=== PATIENT | female | born 1985 | race American Indian/Alaskan Native ===

== ENCOUNTER 2017-04-08 10:13 | Emergency (ER) | payer SELFPAY ==
[2017-04-08] MEDS ORDERED: NACL 0.9% 1000 ML 1,000 ML IV ONE (11:10)
[2017-04-08] MEDS ORDERED: NORMODYNE IV ONE (11:11)
[2017-04-08 11:28] LABS: Bacteria,Urine 1+ /HPF (Negative); Bilirubin,Urine NEG (Negative); Blood,Urine MOD (Negative); Ketones,Urine NEG (Negative); Leukocyte Esterase,Urine SM (Negative); Mucus,Urine FEW /HPF; Nitrite,Urine NEG (Negative)
[2017-04-08] MEDS ORDERED: ZITHROMAX PO ONE (11:43)
[2017-04-08] MEDS ORDERED: ROCEPHIN IM ONE (11:44)
[2017-04-08] MEDS ORDERED: XYLOCAINE 1% MPF 5 mL INFILTRATI ONE (11:44)
--- NOTE | 2017-04-08 11:50 | Emergency Department Report ---
ED Female HPI - General Chief complaint: Urogenital-Female Stated complaint: STD/UTI Time Seen by Provider: 04/08/17 10:47 Source: patient Mode of arrival: Ambulatory Limitations: No Limitations - History of Present Illness Initial comments: This is a 31-year-old female nontoxic, well nourished in appearance, no acute signs of distress presents to the ED with c/o of vaginal discharge, dysuria, polyuria 1 week. Patient states discharges thick white creamy. Denies any chest pain, shortness of breath, fever, chills, nausea, vomiting, back pain, abdominal pain, pelvic pain. Patient states she is currently concerned about STD exposure due to unprotected sex prior to symptoms. Patient also states she has not taken her blood pressure medication 1 month. She states she takes Aldomet 500 mg BID. Patient denies any headache, blurry vision, dizziness. Denies any allergies. Past medical history includes hypertension. MD Complaint: vaginal discharge, dysuria, possible STD -: week(s) (1) Radiation: non-radiating Severity: mild Severity scale (0 -10): 8 Quality: burning Consistency: constant Improves with: none Worsens with: urination Are you Now?: No (patient has a Mirena) Last Menstrual Period: 03/21/15 EDC: 12/26/15 Associated Symptoms: vaginal discharge, dysuria. denies: vaginal bleeding, abdominal pain, nausea/vomiting, fever/chills, headaches, loss of appetite, hematuria, rash, seizure, shortness of breath, syncope, weakness - Related Data Sexually active: Yes Home Medications Medication Instructions Recorded Confirmed Last Taken Aldomet 500 mg PO BID 03/15/15 03/15/15 03/15/15 0900 Previous Rx's Medication Instructions Recorded Last Taken Type Docusate Sodium [Colace] 100 mg PO BID PRN #60 capsule 03/15/15 Unknown Rx Ferrous Gluconate [Fergon 325 MG 325 mg PO QDAY #30 tablet 03/15/15 Unknown Rx tab] Ibuprofen [Motrin] 800 mg PO Q8HR PRN #30 tablet 03/15/15 Unknown Rx Lidocain2.5%/Prilocai2.5% [Emla] 1 applic TP ONCE #1 tube 03/15/15 Unknown Rx oxyCODONE /ACETAMINOPHEN [Percocet 2 tab PO Q4HR PRN #30 tab 03/15/15 Unknown Rx 5/325] Sulfamethoxazole/Trimethoprim 1 each PO BID #14 tablet 04/08/17 Unknown Rx [Bactrim DS TAB] metroNIDAZOLE [Flagyl] 500 mg PO Q12HR #14 tab 04/08/17 Unknown Rx Allergies Allergy/AdvReac Type Severity Reaction Status Date / Time No Known Allergies Allergy Verified 08/01/14 13:49 ED Review of Systems ROS: Stated complaint: STD/UTI Other details as noted in HPI Constitutional: denies: chills, fever Eyes: denies: eye pain, eye discharge, vision change ENT: denies: ear pain, throat pain Respiratory: denies: cough, shortness of breath, wheezing Cardiovascular: denies: chest pain, palpitations Endocrine: no symptoms reported Gastrointestinal: denies: abdominal pain, nausea, diarrhea Genitourinary: urgency, dysuria, frequency, discharge Musculoskeletal: denies: back pain, joint swelling, arthralgia Skin: denies: rash, lesions Neurological: denies: headache, weakness, paresthesias Psychiatric: denies: anxiety, depression Hematological/Lymphatic: denies: easy bleeding, easy bruising ED Past Medical Hx - Past Medical History Hx Hypertension: Yes (this / methaldopa) Hx Congestive Heart Failure: No Hx Diabetes: No Hx Deep Vein Thrombosis: No Hx Renal Disease: No Hx Sickle Cell Disease: No Hx Seizures: No Hx Asthma: No Hx COPD: No Hx HIV: No - Surgical History Additional Surgical History: - Social History Smoking Status: Never Smoker Substance Use Type: Alcohol - Medications Home Medications: Home Medications Medication Instructions Recorded Confirmed Last Taken Type Aldomet 500 mg PO BID 03/15/15 03/15/15 03/15/15 History 09 Docusate Sodium [Colace] 100 mg PO BID PRN #60 capsule 03/15/15 Unknown Rx Ferrous Gluconate [Fergon 325 MG 325 mg PO QDAY #30 tablet 03/15/15 Unknown Rx tab] Ibuprofen [Motrin] 800 mg PO Q8HR PRN #30 tablet 03/15/15 Unknown Rx Lidocain2.5%/Prilocai2.5% [Emla] 1 applic TP ONCE #1 tube 03/15/15 Unknown Rx oxyCODONE /ACETAMINOPHEN [Percocet 2 tab PO Q4HR PRN #30 tab 03/15/15 Unknown Rx 5/325] Sulfamethoxazole/Trimethoprim 1 each PO BID #14 tablet 04/08/17 Unknown Rx [Bactrim DS TAB] metroNIDAZOLE [Flagyl] 500 mg PO Q12HR #14 tab 04/08/17 Unknown Rx ED Physical Exam - General Limitations: No Limitations General appearance: alert, in no apparent distress - Head Head exam: Present: atraumatic, normocephalic, normal inspection - Eye Eye exam: Present: normal appearance, PERRL, EOMI. Absent: scleral icterus, conjunctival injection, nystagmus, periorbital swelling, periorbital tenderness Pupils: Present: normal accommodation - ENT ENT exam: Present: normal exam, normal orophraynx, mucous membranes moist, TM's normal bilaterally, normal external ear exam - Neck Neck exam: Present: normal inspection, full ROM. Absent: tenderness, meningismus, lymphadenopathy, thyromegaly - Respiratory Respiratory exam: Present: normal lung sounds bilaterally. Absent: respiratory distress, wheezes, rales, rhonchi, stridor, chest wall tenderness, accessory muscle use, decreased breath sounds, prolonged expiratory - Cardiovascular Cardiovascular Exam: Present: regular rate, normal rhythm, normal heart sounds. Absent: irregular rhythm, systolic murmur, diastolic murmur, rubs, gallop - GI/Abdominal GI/Abdominal exam: Present: soft, normal bowel sounds. Absent: distended, tenderness, guarding, rebound, rigid, diminished bowel sounds - Rectal Rectal exam: Present: deferred - External exam: Present: normal external exam, other (nuclear power reactor operator Onnie RN present during exam). Absent: erythema, swelling, lesions, lacerations, ecchymosis, bleeding Speculum exam: Present: normal speculum exam, cervical discharge (white thick with foul odor), other (nuclear power reactor operator Onnie RN present during exam). Absent: erythema, vaginal discharge, vaginal bleeding, foreign body, tissue, laceration Bi-manual exam: Present: normal bi-manual exam, other (nuclear power reactor operator Onnie RN present during exam). Absent: cervical motion tendernes, adnexal tenderness, adnexal mass, uterine enlargement, uterine tenderness - Extremities Exam Extremities exam: Present: normal inspection, full ROM, normal capillary refill. Absent: tenderness, pedal edema, joint swelling, calf tenderness - Back Exam Back exam: Present: normal inspection, full ROM. Absent: tenderness, CVA tenderness (R), CVA tenderness (L), muscle spasm, paraspinal tenderness, vertebral tenderness, rash noted - Neurological Exam Neurological exam: Present: alert, oriented X3, CN II-XII intact, normal gait, reflexes normal - Psychiatric Psychiatric exam: Present: normal affect, normal mood - Skin Skin exam: Present: warm, dry, intact, normal color. Absent: rash ED Course Vital Signs 04/08/17 04/08/17 04/08/17 10:35 11:27 12:12 Temperature 98.4 F Pulse Rate 91 H 70 73 Respiratory 18 Rate Blood Pressure 207/116 Blood Pressure 184/115 [Left] O2 Sat by Pulse 100 Oximetry - Reevaluation(s) Reevaluation #1: 04/08/17 11:51 Patient is speaking in full sentences with no signs of distress noted. ED Medical Decision Making - Medical Decision Making this is a 32-year-old female that presents with UTI, Trichomonas, and possible STD. Patient is stable and was examined by me. Dr. Montiel has been consulted about . History, physical exam and hypertension and agrees to the ED plan of care. Patient received 20 mg hydralazine and labetalol IV and 1 L normal saline. Blood pressures decreased. Patient was instructed to follow-up with a primary care doctor in 24 hours for blood pressure. Patient also instructed on low sodium diet. Urine has been obtained and elevated WBCs as well as as well as leukocytes. GC obtained and pending. Patient instructed to return in 2 days to obtain results of GC. Patient received Rocephin 250 mg IM and 1 g of Rocephin. Patient is discharged with Bactrim and fagyl 7 days. Instructed Follow-up with a primary care doctor in 3-5 days or if symptoms worsen and continue return to emergency room as soon as possible. At time time of discharge, the patient does not seem toxic or ill in appearance. No acute signs of distress noted. Patient agrees to discharge treatment plan of care. No further questions noted by the patient. Critical care attestation.: If time is entered above; I have spent that time in minutes in the direct care of this critically ill patient, excluding procedure time. ED Disposition Clinical Impression: Possible exposure to STD, Trichomoniasis UTI (urinary tract infection) Qualifiers: Urinary tract infection type: site unspecified Hematuria presence: without hematuria Qualified Code(s): N39.0 - Urinary tract infection, site not specified Hypertension Qualifiers: Hypertension type: unspecified Qualified Code(s): I10 - Essential (primary) hypertension Disposition: DC-01 TO HOME OR SELFCARE Is pt being admited?: No Does the pt Need Aspirin: No Condition: Stable Instructions: Sulfamethoxazole/Trimethoprim (By mouth), Metronidazole (By mouth ), Safe Sex (ED), Trichomoniasis (ED), Urinary Tract Infection in Women (ED), Chronic Hypertension (ED), Low Sodium Diet (ED), Hypertension (ED) Additional Instructions: Follow-up with a primary care doctor in 24 hours or if symptoms worsen and continue return to emergency room as soon as possible. Keep a low Sodium diet and obtaining her blood pressure daily and keep a daily diary to present to primary care doctor. Do not consume any alcohol while taking antibiotics Prescriptions: metroNIDAZOLE [Flagyl] 500 mg PO Q12HR #14 tab Sulfamethoxazole/Trimethoprim [Bactrim DS TAB] 1 each PO BID #14 tablet Referrals: [facility] [Outside] - 3-5 Days [facility] [Outside] - 3-5 Days PRIMARY CAREMD [Primary Care Provider] - 24 Hours DARREN OCHOA MD [Staff Physician] - 24 Hours Forms: Work/School Release Form(ED)
[2017-04-08] MEDS ORDERED: APRESOLINE IV ONE (13:15)
[2017-04-08 14:17] VITALS: BP 165/95
[2017-04-08] MEDS ORDERED: PROVENTIL IH ONE (14:20)
== END 2017-04-08 14:27 | disposition home or self-care (01) ==
LOC: ED 10:13
DX: N39.0 Urinary tract infection, site not specified (principal); I10 Essential (primary) hypertension; A59.9 Trichomoniasis, unspecified
CPT/HCPCS: 81001; 81025; 87210; 87591; 96361; 96372; 96374; 96375; 99284; J0360; J0696; J7030

== ENCOUNTER 2020-12-18 15:54 | Emergency (ER) | payer SELFPAY | END 2020-12-18 22:00 | disposition home or self-care (01) | LOC: ED 15:54 | DX: R06.00 Dyspnea, unspecified (principal); Z53.21 Procedure and treatment not carried out due to patient leaving prior to being seen by health care provider ==

== ENCOUNTER 2021-06-15 11:53 | Outpatient (CLI) | payer MEDICAID ==
[2021-06-15 13:13] VITALS: BP 122/67
== END 2021-06-15 13:18 | disposition home or self-care (01) ==
LOC: TRG 11:53 → APU 11:54 → TRG 13:18
PROVIDERS: ATTEND Obstetrics & Gynecology
DX: O09.893 Supervision of other high risk pregnancies, third trimester (principal); Z3A.35 35 weeks gestation of pregnancy
CPT/HCPCS: 59025